=== PATIENT | female | born 2000 | race African-American/Black ===

== ENCOUNTER → 2019-03-03 | Outpatient (CLI) | payer OTHER ==
[2019-03-06 16:13] LABS: GC PROBE Negative (Negative)
== END | disposition home or self-care (01) ==
LOC: LAB 14:48
PROVIDERS: ATTEND Family Medicine
DX: N89.8 Other specified noninflammatory disorders of vagina (principal)
CPT/HCPCS: 36415; 87491; 87591; 87623; 88175

== ENCOUNTER → 2019-03-27 | Outpatient (CLI) | payer OTHER ==
[2019-03-28 17:14] LABS: GC PROBE Negative (Negative)
== END | disposition home or self-care (01) ==
LOC: LAB 10:29
PROVIDERS: ATTEND Family Medicine
DX: N89.8 Other specified noninflammatory disorders of vagina (principal)
CPT/HCPCS: 87480; 87491; 87510; 87591; 87660

== ENCOUNTER → 2020-05-08 | Outpatient (CLI) | payer OTHER | END | disposition home or self-care (01) | LOC: SPEC 12:18 | PROVIDERS: ATTEND Nurse Practitioner Family | DX: J02.9 Acute pharyngitis, unspecified (principal) | CPT/HCPCS: 87070 ==

== ENCOUNTER → 2020-11-28 | Outpatient (CLI) | payer OTHER ==
[2020-11-28 16:57] LABS: BASO % 0 % (0-3); EOS # 0.1 x10^3/uL (0.0-0.7); EOS % 1 % (0-3); HEMATOCRIT 36.5 % (36.0-47.0); HEMOGLOBIN 12.4 g/dL (12.0-15.5); LYMPH # 1.9 x10^3/uL (1.0-4.8); LYMPH % 19 % (24-48); MEAN CORPUSCULAR HEMOGLOBIN 32 pg (25-35); MEAN CORPUSCULAR HGB CONC 34 g/dL (31-37); MEAN CORPUSCULAR VOLUME 95 fL (79-100); MONO # 1.1 x10^3/uL (0.0-1.1); MONO % 12 % (0-9); NEUT # 6.6 x10^3/uL (1.8-7.7); NEUT % 68 % (31-73); PLATELET COUNT 282 x10^3/uL (140-400); RED BLOOD COUNT 3.84 x10^6/uL (3.50-5.40); RED CELL DISTRIBUTION WIDTH 14.4 % (11.5-14.5); WHITE BLOOD COUNT 9.8 x10^3/uL (4.0-11.0)
== END ==
LOC: LAB 16:36
PROVIDERS: ATTEND Obstetrics & Gynecology
DX: Z32.01 Encounter for pregnancy test, result positive (principal)
CPT/HCPCS: 36415; 85025; 86592; 86762; 86850; 86900; 86901; 87340

== ENCOUNTER → 2021-01-23 | Outpatient (CLI) | payer OTHER | LOC: LAB 15:23 | PROVIDERS: ATTEND Obstetrics & Gynecology | DX: O09.90 Supervision of high risk pregnancy, unspecified, unspecified trimester (principal); Z3A.00 Weeks of gestation of pregnancy not specified | CPT/HCPCS: 36415; 86850; 86900; 86901 ==

== ENCOUNTER → 2021-02-20 | Outpatient (CLI) | payer OTHER ==
--- NOTE | 2021-02-20 12:20 | RAD ---
EXAM: OB ULTRASOUND, > 14 WEEKS HISTORY: Size and dates discrepancy. COMPARISON: None. TECHNIQUE: Multiple grayscale images, color Doppler, and M-mode images of the uterus are obtained. FINDINGS: There is a single intrauterine gestation in breech presentation. The placenta is grade 1 and posterio r in location without evidence of placenta previa. The amount of amniotic fluid appears appropriate. Amniotic fluid index is grossly normal. Cervical length is 4.4 cm. Biometrical data: BPD = 4.21 cm for 18 weeks 5 days. HC = 15.15 cm for 18 weeks 1 days. AC = 12.96 cm for 18 weeks 4 days. FL = 2.82 cm for 18 weeks 4 days. HC/AC ratio = 1.17. Overall, the estimated sonographic gestational age is 18 weeks and 4 days for an estimated date of de livery of 07/20/2021. The estimated date of delivery provided by the last menstrual period is 021. Estimated weight is 245 grams. A 4 chamber heart is identified with positive cardiac activity. The estimated heart rate is 149 beats per minute. Bilateral upper and lower extremities are identified. There is a three-vessel cord with cord insertion visualized. stomach and urinary bladder are identified. Both kidneys are seen. The spine and brain are unremarkable. No obvious anatomic abnormalities are identified. The maternal adnexal regions are obscured. IMPRESSION: 1. Single intrauterine fetus in breech presentation with a normal heart rate and gestational age base d on ultrasound measurements of 18 weeks and 4 days. This is consistent with the estimated gestationa l age patient LMP. 2. Unremarkable anatomy survey. Electronically signed by: Ly Ybarra MD (02/20/2021 12:17 PM) [id number]
== END ==
LOC: US 10:49
PROVIDERS: ATTEND Obstetrics & Gynecology
DX: O26.842 Uterine size-date discrepancy, second trimester (principal); Z3A.18 18 weeks gestation of pregnancy
CPT/HCPCS: 76805

== ENCOUNTER → 2021-05-01 | Outpatient (CLI) | payer OTHER ==
[2021-05-01 12:16] LABS: HEMATOCRIT 32.4 % (36.0-47.0); HEMOGLOBIN 11.1 g/dL (12.0-15.5); RED BLOOD COUNT 3.38 x10^6/uL (3.50-5.40); RED CELL DISTRIBUTION WIDTH 13.7 % (11.5-14.5); WHITE BLOOD COUNT 9.2 x10^3/uL (4.0-11.0)
== END ==
LOC: LAB 10:43
PROVIDERS: ATTEND Obstetrics & Gynecology
DX: Z34.93 Encounter for supervision of normal pregnancy, unspecified, third trimester (principal); Z3A.00 Weeks of gestation of pregnancy not specified
CPT/HCPCS: 36415; 82950; 85027; 86850; 86900; 86901

== ENCOUNTER → 2021-06-23 | Outpatient (CLI) | payer OTHER | LOC: SPEC 11:30 | PROVIDERS: ATTEND Obstetrics & Gynecology | DX: Z34.93 Encounter for supervision of normal pregnancy, unspecified, third trimester (principal); Z3A.00 Weeks of gestation of pregnancy not specified | CPT/HCPCS: 87653 ==

== ENCOUNTER 2021-07-13 15:24 | Inpatient (IN) | payer OTHER ==
[~2021-07-13] VITALS: Ht 167.6 cm; Wt 73.8 kg
[2021-07-13 15:55] LABS: BILIRUBIN,URINE NEGATIVE (NEG); CLARITY,URINE CLEAR; COLOR,URINE YELLOW
[2021-07-13 15:56] LABS: BACTERIA,URINE MODERATE /HPF (0-FEW); NITRITE,URINE NEGATIVE (NEG); PH,URINE 7.5 (<5.0-8.0); PROTEIN,URINE NEGATIVE (NEG-TRACE); UROBILINOGEN,URINE 0.2 mg/dL (0.2 mg/dL)
[2021-07-13 15:57] LABS: RBC,URINE OCC /HPF (0-2)
[2021-07-13] MEDS ORDERED: TERBUTALINE 1 MG/ML VIAL. SQ PRN (16:00)
[2021-07-13] MEDS ORDERED: 0.9 % SODIUM CHLORIDE 10 ML DISP.SYRIN. IV PRN (16:00)
[2021-07-13] MEDS ORDERED: IV RINGERS,LACTATED 1000ML 1,000 ML IV SCH (16:00)
[2021-07-13] MEDS ORDERED: LIDOCAINE 1% PF 30 ML VIAL. INJ PRN (16:00)
[2021-07-13] MEDS ORDERED: OXYTOCIN 30 UNIT/500 ML PREMIX 500 ML IV PRN ×2 (16:00)
[2021-07-13 16:22] VITALS: BP 127/83
[2021-07-13] MEDS: IV RINGERS,LACTATED 1000ML 1,000 ML IV SCH ×2 (16:34→17:23)
[2021-07-13 16:35] LABS: BASO % 0 % (0-3); EOS # 0.1 x10^3/uL (0.0-0.7); EOS % 1 % (0-3); HEMATOCRIT 31.3 % (36.0-47.0); HEMOGLOBIN 10.6 g/dL (12.0-15.5); LYMPH # 1.4 x10^3/uL (1.0-4.8); LYMPH % 9 % (24-48); MEAN CORPUSCULAR HEMOGLOBIN 31 pg (25-35); MEAN CORPUSCULAR HGB CONC 34 g/dL (31-37); MEAN CORPUSCULAR VOLUME 92 fL (79-100); MONO # 1.3 x10^3/uL (0.0-1.1); MONO % 9 % (0-9); NEUT # 12.6 x10^3/uL (1.8-7.7); NEUT % 81 % (31-73); PLATELET COUNT 259 x10^3/uL (140-400); RED BLOOD COUNT 3.39 x10^6/uL (3.50-5.40); RED CELL DISTRIBUTION WIDTH 14.7 % (11.5-14.5); WHITE BLOOD COUNT 15.4 x10^3/uL (4.0-11.0)
[2021-07-13 16:56] LABS: % BANDS 4 % (0-9); % LYMPHS 12 % (24-48); % MONOS 7 % (0-10); % SEGS 77 % (35-66); PLT ESTIMATE ADEQUATE (ADEQUATE)
[2021-07-13] MEDS ORDERED: fentaNYL PF VIAL 100 MCG/2 ML VIAL ONE (16:59)
[2021-07-13] MEDS ORDERED: ROPIVacaine 0.2% PF 10 ML VIAL. ONE ×2 (16:59→17:00)
[2021-07-13] MEDS ORDERED: L&D EPIDURAL SYRINGE 50 ML ONE (16:59)
[2021-07-13] MEDS ORDERED: L&D EPIDURAL 50 ML SYRINGE. ONE (17:00)
[2021-07-13] MEDS ORDERED: FLU VACC QUAD 21-22 (6MOS+) PF 0.5 ML SYRINGE. VAX IM ONE (18:00)
[2021-07-13] MEDS ORDERED: PREN-48 PO (18:09)
[2021-07-13] MEDS ORDERED: ACYC-12 PO (18:10)
[2021-07-13] MEDS ORDERED: fentaNYL PF VIAL 100 MCG/2 ML VIAL EPID ONE (18:15)
[2021-07-13] MEDS ORDERED: ePHEDrine PF IN SALINE 50 MG/10 ML SYRINGE. IV PRN (18:15)
[2021-07-13] MEDS ORDERED: L&D EPIDURAL SYRINGE 50 ML EPID PRN (18:15)
[2021-07-13] MEDS ORDERED: NALOXONE 0.4 MG/ML VIAL. IV PRN (18:15)
[2021-07-13] MEDS ORDERED: IV RINGERS,LACTATED 1000ML 1,000 ML IV ONE (18:15)
[2021-07-13] MEDS ORDERED: diphenhydrAMINE 50 MG/ML VIAL IVP PRN (18:15)
[2021-07-13] MEDS ORDERED: ONDANSETRON PF 4 MG/2 ML VIAL. IV PRN (18:15)
[2021-07-13] MEDS ORDERED: MMR per PROTOCOL. MC PRN (21:15)
[2021-07-13] MEDS ORDERED: SIMETHICONE 80 MG TAB.CHEW PO PRN (21:15)
[2021-07-13] MEDS ORDERED: TDaP (Adacel) per PROTOCOL. MC PRN (21:15)
[2021-07-13] MEDS ORDERED: PHENYLEPH/MINERAL OIL/PETROLAT RECTAL OINTMENT TUBE. RC PRN (21:15)
[2021-07-13] MEDS ORDERED: MAG HYDROX/ALUMINUM HYD/SIMETH 30 ML ORAL.SUSP PO PRN (21:15)
[2021-07-13] MEDS ORDERED: MAGNESIUM HYDROXIDE 2,400 MG/30 ML ORAL.SUSP. PO PRN (21:15)
[2021-07-13] MEDS ORDERED: ACETAMINOPHEN 325 MG TABLET. PO PRN (21:15)
[2021-07-13] MEDS ORDERED: ZOLPIDEM 5 MG TABLET. PO PRN (21:15)
--- NOTE | 2021-07-13 21:20 | PDOC ---
GENERAL General: 21 yrs old lady 39 weeks admitted in Active Labor. VITAL SIGNS Vital Signs/I&O: Vital Signs Date Time Temp Pulse Resp B/P (MAP) Pulse Ox O2 Delivery O2 Flow Rate FiO2 07/13/21 16:22 99.6 80 16 127/83 (98) Room Air 99.6 ALLERGIES Allergies: Allergies Coded Allergies Type Severity Reaction Last Updated Verified No Known Drug Allergies 07/13/21 No MEDS Medications: Current Medications Medications (Trade) Dose Ordered Sig/Charles Route PRN Reason Start Time Stop Time Status Last Admin Dose Admin Ringer's Solution 1,000 ml @ 125 mls/hr Q8H IV 07/13/21 15:45 07/13/21 17:23 Diphenhydramine HCl (Benadryl) 25 mg PRN Q6HRS PRN IVP ITCHING 07/13/21 18:15 07/13/21 18:45 LAB Lab: Laboratory Tests Test 07/13/21 15:43 07/13/21 16:00 Urine Collection Type Unknown Urine Color Yellow Urine Clarity Clear Urine pH 7.5 (<5.0-8.0) Urine Specific [place] 1.015 (1.000-1.030) Urine Protein Negative mg/dL (NEG-TRACE) Urine Glucose (UA) Negative mg/dL (NEG) Urine Ketones (Stick) Negative mg/dL (NEG) Urine Blood Trace (NEG) Urine Nitrite Negative (NEG) Urine Bilirubin Negative (NEG) Urine Urobilinogen Dipstick 0.2 mg/dL (0.2 mg/dL) Urine Leukocyte Esterase Negative (NEG) Urine RBC Occ /HPF (0-2) Urine WBC 1-4 /HPF (0-4) Urine Squamous Epithelial Cells Mod /LPF Urine Bacteria Moderate /HPF (0-FEW) White Blood Count 15.4 x10^3/uL (4.0-11.0) H Red Blood Count 3.39 x10^6/uL (3.50-5.40) L Hemoglobin 10.6 g/dL (12.0-15.5) L Hematocrit 31.3 % (36.0-47.0) L Mean Corpuscular Volume 92 fL (79-100) Mean Corpuscular Hemoglobin 31 pg (25-35) Mean Corpuscular Hemoglobin Concent 34 g/dL (31-37) Red Cell Distribution Width 14.7 % (11.5-14.5) H Platelet Count 259 x10^3/uL (140-400) Neutrophils (%) (Auto) 81 % (31-73) H Lymphocytes (%) (Auto) 9 % (24-48) L Monocytes (%) (Auto) 9 % (0-9) Eosinophils (%) (Auto) 1 % (0-3) Basophils (%) (Auto) 0 % (0-3) Neutrophils # (Auto) 12.6 x10^3/uL (1.8-7.7) H Lymphocytes # (Auto) 1.4 x10^3/uL (1.0-4.8) Monocytes # (Auto) 1.3 x10^3/uL (0.0-1.1) H Eosinophils # (Auto) 0.1 x10^3/uL (0.0-0.7) Basophils # (Auto) 0.0 x10^3/uL (0.0-0.2) Segmented Neutrophils % 77 % (35-66) H Band Neutrophils % 4 % (0-9) Lymphocytes % 12 % (24-48) L Monocytes % 7 % (0-10) Platelet Estimate Adequate (ADEQUATE) Treponema pallidum Antibody Nonreactive (Nonreactive) Laboratory Tests 07/13/21 16:00 ASSESSMENT & PLAN A&P Vital signs stable. Cervix dilated to 4cms on Admission to Hospital. Made good Progress of Labor and had Spontaneous Vaginal Delivery. Justifications for Admission Other Justification CIPRIANO BARRERA MD Jul 13, 2021 21:20
--- NOTE | 2021-07-13 21:38 | OP ---
DATE OF SURGERY: 07/13/2021 DELIVERY NOTE This patient is a 21-year-old white female who is a primigravida, 39 weeks' , came into the Labor and Delivery with a history of having contractions. The patient is in active labor. She was seen by Dr. Archibald before and at the time of admission to the hospital, cervix dilated to 4 cm and membranes intact and the patient in active labor. She did receive labor epidural and made a good progress, got to complete dilatation, had spontaneous vaginal delivery. A live female weighing 6 pounds was delivered at 0903 hours with the score of 899 without any problems and cord was clamped and cut. Cord blood was taken. Placenta was removed spontaneous. No hemorrhage noted. She did receive Pitocin after delivery of the placenta. This is a second-degree laceration in the midline of the perineum. This was sutured with 2-0 chromic catgut sutures. Estimated blood loss about 100 mL. Mother tolerated the delivery well. No complications at this time. Baby is referred to grants analyst for further care and treatment. RODNEY DR: Rashaun TID: [id number]
--- NOTE | 2021-07-13 21:56 | HP ---
ADMIT DATE: 07/13/2021 CHIEF COMPLAINT AND HISTORY OF PRESENT ILLNESS: This patient is a 21 years old white female who is G1, P0, seen by Dr. Archibald for care and admitted to the hospital with a history of having contractions and at the time of admission to the hospital, cervix dilated to about 4 cm, vertex presenting, membranes intact. PHYSICAL EXAMINATION: VITAL SIGNS: Stable. DIAGNOSIS: Primigravida in active labor. PLAN: Admission, vaginal delivery. MAG DR: Rashaun TID: [id number]
[2021-07-14] VITALS (7 sets, daily range): BP systolic 96–119; BP diastolic 50–71
[2021-07-14] MEDS ORDERED: diphenhydrAMINE HCL 25 MG CAPSULE PO PRN (00:30)
[2021-07-14] MEDS: IBUPROFEN 400 MG TABLET. PO PRN ×4 (02:31→21:16)
[2021-07-14] MEDS: BENZOCAINE 20% TOPICAL AEROSOL SPRAY 57GM CAN. TP PRN (02:31)
[2021-07-14] MEDS: DOCUSATE SODIUM 100 MG CAPSULE. PO PRN ×2 (09:06→21:16)
[2021-07-14] MEDS: FERROUS SULFATE 325 MG TABLET. PO SCH ×2 (09:06→17:43)
--- NOTE | 2021-07-14 15:09 | PDOC ---
GENERAL General: Patient doing well No Complaints. VITAL SIGNS Vital Signs/I&O: Vital Signs Date Time Temp Pulse Resp B/P (MAP) Pulse Ox O2 Delivery O2 Flow Rate FiO2 07/14/21 12:19 98.4 82 20 112/59 (76) 98 98.4 07/14/21 06:12 Room Air I & O 07/13/21 07/13/21 07/14/21 14:59 22:59 06:59 Intake Total 1000 ml Balance 1000 ml ALLERGIES Allergies: Allergies Coded Allergies Type Severity Reaction Last Updated Verified No Known Drug Allergies 07/13/21 No MEDS Medications: Current Medications Medications (Trade) Dose Ordered Sig/Charles Route PRN Reason Start Time Stop Time Status Last Admin Dose Admin Ringer's Solution 1,000 ml @ 125 mls/hr Q8H IV 07/13/21 15:45 07/14/21 00:33 DC 07/13/21 17:23 Oxytocin 500 ml @ 0 mls/hr CONT PRN PRN IV Post delivery bleeding 07/13/21 16:00 07/13/21 21:06 Ibuprofen (Motrin) 800 mg PRN Q6HRS PRN PO PAIN 07/13/21 16:00 07/14/21 14:04 Diphenhydramine HCl (Benadryl) 25 mg PRN Q6HRS PRN IVP ITCHING 07/13/21 18:15 07/14/21 00:33 DC 07/13/21 18:45 Acetaminophen (Tylenol) 650 mg PRN Q6HRS PRN PO MILD PAIN / TEMP > 100.3'F 07/13/21 21:15 07/14/21 06:08 Docusate Sodium (Colace) 100 mg PRN BID PRN PO HARD STOOLS 07/13/21 21:15 07/14/21 09:06 Ferrous Sulfate (Feosol) 325 mg BIDWMEALS PO 07/14/21 08:00 07/14/21 09:06 Benzocaine (Americaine) 1 spray PRN Q4HRS PRN TP PAIN 07/13/21 23:45 07/14/21 02:31 LAB Lab: Laboratory Tests Test 07/13/21 15:43 07/13/21 16:00 07/14/21 07:35 Urine Collection Type Unknown Urine Color Yellow Urine Clarity Clear Urine pH 7.5 (<5.0-8.0) Urine Specific [place] 1.015 (1.000-1.030) Urine Protein Negative mg/dL (NEG-TRACE) Urine Glucose (UA) Negative mg/dL (NEG) Urine Ketones (Stick) Negative mg/dL (NEG) Urine Blood Trace (NEG) Urine Nitrite Negative (NEG) Urine Bilirubin Negative (NEG) Urine Urobilinogen Dipstick 0.2 mg/dL (0.2 mg/dL) Urine Leukocyte Esterase Negative (NEG) Urine RBC Occ /HPF (0-2) Urine WBC 1-4 /HPF (0-4) Urine Squamous Epithelial Cells Mod /LPF Urine Bacteria Moderate /HPF (0-FEW) White Blood Count 15.4 x10^3/uL (4.0-11.0) H Red Blood Count 3.39 x10^6/uL (3.50-5.40) L Hemoglobin 10.6 g/dL (12.0-15.5) L Hematocrit 31.3 % (36.0-47.0) L 28.3 % (36.0-47.0) L Mean Corpuscular Volume 92 fL (79-100) Mean Corpuscular Hemoglobin 31 pg (25-35) Mean Corpuscular Hemoglobin Concent 34 g/dL (31-37) Red Cell Distribution Width 14.7 % (11.5-14.5) H Platelet Count 259 x10^3/uL (140-400) Neutrophils (%) (Auto) 81 % (31-73) H Lymphocytes (%) (Auto) 9 % (24-48) L Monocytes (%) (Auto) 9 % (0-9) Eosinophils (%) (Auto) 1 % (0-3) Basophils (%) (Auto) 0 % (0-3) Neutrophils # (Auto) 12.6 x10^3/uL (1.8-7.7) H Lymphocytes # (Auto) 1.4 x10^3/uL (1.0-4.8) Monocytes # (Auto) 1.3 x10^3/uL (0.0-1.1) H Eosinophils # (Auto) 0.1 x10^3/uL (0.0-0.7) Basophils # (Auto) 0.0 x10^3/uL (0.0-0.2) Segmented Neutrophils % 77 % (35-66) H Band Neutrophils % 4 % (0-9) Lymphocytes % 12 % (24-48) L Monocytes % 7 % (0-10) Platelet Estimate Adequate (ADEQUATE) Treponema pallidum Antibody Nonreactive (Nonreactive) Laboratory Tests 07/13/21 16:00 07/14/21 07:35 ASSESSMENT & PLAN A&P Vital signs stable. Uterus firm. Lochia Normal. Plan dismissal in am tomorrow. Justifications for Admission Other Justification CIPRIANO BARRERA MD Jul 14, 2021 15:09
[2021-07-15 05:12] VITALS: BP 106/60
[2021-07-15] MEDS: IBUPROFEN 400 MG TABLET. PO PRN ×3 (05:19→22:37)
[2021-07-15] MEDS: DOCUSATE SODIUM 100 MG CAPSULE. PO PRN ×2 (05:19→16:01)
[2021-07-15 08:16] VITALS: BP 115/70
[2021-07-15] MEDS: FERROUS SULFATE 325 MG TABLET. PO SCH ×2 (09:47→17:33)
--- NOTE | 2021-07-15 14:01 | PDOC ---
GENERAL General: Patient doing ok. No Problems. Baby in Special Nursery. VITAL SIGNS Vital Signs/I&O: Vital Signs Date Time Temp Pulse Resp B/P (MAP) Pulse Ox O2 Delivery O2 Flow Rate FiO2 07/15/21 08:16 98.4 85 16 115/70 (85) 97 Room Air 98.4 I & O 07/14/21 07/14/21 07/15/21 14:59 22:59 06:59 Intake Total 12 ml 950 ml Balance 12 ml 950 ml ALLERGIES Allergies: Allergies Coded Allergies Type Severity Reaction Last Updated Verified No Known Drug Allergies 07/13/21 No ASSESSMENT & PLAN A&P Patient to be on Border Status. Return to office in 6 weeks. Justifications for Admission Other Justification CIPRIANO BARRERA MD Jul 15, 2021 14:01
[2021-07-15 14:46] VITALS: BP 100/59
[2021-07-15] MEDS: PRENATAL MULTIVITAMIN TABLET. PO SCH (16:01)
[2021-07-15] MEDS: BENZOCAINE 20% TOPICAL AEROSOL SPRAY 57GM CAN. TP PRN (16:13)
--- NOTE | 2021-07-15 17:24 | NUR ---
MD called and updated on pt. depression screen score. Discharge canceled. MD to round on pt. in the AM and SW consult placed.
[2021-07-15 19:17] VITALS: BP 110/61
[2021-07-16] MEDS: IBUPROFEN 400 MG TABLET. PO PRN ×4 (04:25→22:57)
[2021-07-16] MEDS: FERROUS SULFATE 325 MG TABLET. PO SCH ×2 (10:05→19:25)
[2021-07-16] MEDS: DOCUSATE SODIUM 100 MG CAPSULE. PO PRN (10:06)
[2021-07-16] MEDS: PRENATAL MULTIVITAMIN TABLET. PO SCH (10:06)
[2021-07-16 10:29] VITALS: BP 115/62
--- NOTE | 2021-07-16 11:13 | PDOC ---
GENERAL General: Patient sleeping well this morning. VITAL SIGNS Vital Signs/I&O: Vital Signs Date Time Temp Pulse Resp B/P (MAP) Pulse Ox O2 Delivery O2 Flow Rate FiO2 07/16/21 10:29 98.2 82 20 115/62 (79) 98 Room Air 98.2 ALLERGIES Allergies: Allergies Coded Allergies Type Severity Reaction Last Updated Verified No Known Drug Allergies 07/13/21 No MEDS Medications: Current Medications Medications (Trade) Dose Ordered Sig/Charles Route PRN Reason Start Time Stop Time Status Last Admin Dose Admin Multivit/ Folic Acid/Iron (Multivitamin ) 1 tab DAILY PO 07/15/21 15:00 07/16/21 10:06 ASSESSMENT & PLAN A&P Patient waiting for consultation for Depression. She can be Border Status and then go home. Justifications for Admission Other Justification CIPRIANO BARRERA MD Jul 16, 2021 11:13
--- NOTE | 2021-07-16 15:54 | NUR ---
Referral received for depression. PAT team referral made for assessment and recommendations. PAT team meeting with mother now to assess and provide resources. Discharge order on the chart.
[2021-07-16 19:45] VITALS: BP 115/63
== END 2021-07-16 23:30 | disposition home or self-care (01) | DRG 807 ==
LOC: 3 SO LND 15:24 → OBSVTOIN 15:54
PROVIDERS: ADMIT Obstetrics & Gynecology; ATTEND Obstetrics & Gynecology
PROC: 0KQM0ZZ Repair Perineum Muscle, Open Approach (ICD-10-PCS; principal; 2021-07-13)
PROC: 10E0XZZ Delivery of Products of Conception, External Approach (ICD-10-PCS; 2021-07-13)
DX: O70.1 Second degree perineal laceration during delivery (principal); Z37.0 Single live birth; Z3A.39 39 weeks gestation of pregnancy
CPT/HCPCS: 36415; 81001; 85007; 85014; 85025; 85461; 86592; 86850; 86900; 86901; 87086; 90471; 90686; A6258; C1755; G0379; J1200; J2590; J2790; J2795; J3010; J7120; G0378